=== PATIENT | male | born 1990 | race Two or more races ===

== ENCOUNTER 2021-08-16 21:16 | Emergency (ER) | payer MEDICAID ==
[~2021-08-16] VITALS: Ht 193 cm; Wt 77.3 kg
[2021-08-17] MEDS ORDERED: TETanus/Pertussis (Acell)/Diphther VAC/PF (Tdap-Adult) 0.5ml syringe IMVAC ONE (00:20)
[2021-08-17] MEDS ORDERED: LIDOcaine 1% W/epiNEPHrine 1:200,000 10ml vial IJ ONE (00:20)
[2021-08-17] MEDS ORDERED: LIDOcaine 1% w/EPI 1:100,000 30ml vial (MDV) IJ ONE (00:25)
[2021-08-17 01:52] VITALS: BP 130/82
[2021-08-17] MEDS ORDERED: DOXY-11 PO (03:03)
[2021-08-17] MEDS ORDERED: DOXYCYCLINE 100MG CAPSULE PO STA (03:44)
--- NOTE | 2021-08-17 05:48 | NUR ---
Pt offered clothing, the phone, a taxi ride to the mission. Pt denied all offers upon discharge. After patient was in the lobby, he requested a taxi ride, and one was arranged for him.
== END 2021-08-17 02:03 ==
LOC: ER 21:18
DX: S82.401A Unspecified fracture of shaft of right fibula, initial encounter for closed fracture (principal); S91.311A Laceration without foreign body, right foot, initial encounter; Z59.00 Homelessness unspecified; Z56.0 Unemployment, unspecified; Z20.3 Contact with and (suspected) exposure to rabies; Z79.2 Long term (current) use of antibiotics; X58.XXXA Exposure to other specified factors, initial encounter; Y93.9 Activity, unspecified; Y92.89 Other specified places as the place of occurrence of the external cause; Y99.8 Other external cause status
CPT/HCPCS: 12002; 12004; 12013; 70450; 70486; 72125; 73610; 90471; 90715; 99284

== ENCOUNTER 2021-08-26 12:16 | Emergency (ER) | payer MEDICAID ==
[~2021-08-26] VITALS: Ht 193 cm; Wt 77.5 kg
[2021-08-26 12:30] VITALS: BP 135/76
[2021-08-26] MEDS ORDERED: NAPR-56 PO (12:55)
--- NOTE | 2021-08-26 13:15 | NUR ---
Arnaldo BANEGAS AT BEDSIDE TO TALK WITH PT AT LENGTH ABOUT HIS CARE, PT SAID HE CANNOT USE CRUTCHES THEY MAKE HIS FOOT PAIN WORSE, AND PT WOULD PAIN MEDICATION, PT IS REFUSING CRUTCHES AT THIS TIME
[2021-08-26] MEDS ORDERED: HYDROcodone/acetaminophen 5mg/325mg tablet PO ONE (13:20)
== END 2021-08-26 14:09 | disposition home or self-care (01) ==
LOC: ER 12:16
DX: M25.572 Pain in left ankle and joints of left foot (principal); S01.01XD Laceration without foreign body of scalp, subsequent encounter; S91.311D Laceration without foreign body, right foot, subsequent encounter; Z48.02 Encounter for removal of sutures; Z56.0 Unemployment, unspecified; Z59.00 Homelessness unspecified; Z79.899 Other long term (current) drug therapy; X58.XXXD Exposure to other specified factors, subsequent encounter
CPT/HCPCS: 99283